=== PATIENT | female | born 2000 | race Caucasian/White ===

== ENCOUNTER 2019-12-14 18:50 | Emergency (ER) | payer MEDICAID, OTHER ==
[~2019-12-14] VITALS: Ht 165.1 cm; Wt 81.7 kg
[2019-12-14 18:55] VITALS: BP 134/77
--- NOTE | 2019-12-14 19:02 | NUR ---
patient ambulated to bed 6. handed on urine cup.
--- NOTE | 2019-12-14 19:15 | NUR ---
19 y/o female presented to the ED c/o lower back pain 10/15 that radiates to the front lower abdomen and started 3 days ago. Pt describes the pain as aching, and cramping. Pt states that she feels the needs to use the restroom to VOID however voids very little amounts. Pt is afebrile. Pt denies OTC meds. Pt denies surgeries. LMP: 11/25-12/02. Pt is laying in the bed, pt is no acute distress. Bed is in lowest position with one side rail up. PMH: none NKA
--- NOTE | 2019-12-14 20:52 | NUR ---
Dr. Goyal examining patient.
[2019-12-14] MEDS ORDERED: IBUPROFEN 400 MG TAB PO ONE (20:55)
[2019-12-14] MEDS ORDERED: NITROFURANTOIN 100 MG CAP ONE (21:01)
[2019-12-14 21:05] VITALS: BP 128/74
[2019-12-14] MEDS ORDERED: NITROFURANTOIN 100 MG CAP PO ONE (21:05)
--- NOTE | 2019-12-14 21:05 | NUR ---
Patient discharged with v/s stable. Written and verbal after care instructions given and explained. Patient alert, oriented and verbalized understanding of instructions. Ambulatory with steady gait. All questions addressed prior to discharge. ID band removed. Patient advised to follow up with PMD. Rx of NITROFURANTOIN given. Patient educated on indication of medication including possible reaction and side effects. Opportunity to ask questions provided and answered.
[2019-12-15] MEDS ORDERED: NITROFURANTOIN 100 MG CAP PO SCH (08:00)
== END 2019-12-14 21:05 | disposition home or self-care (01) ==
LOC: MED 18:50
DX: N39.0 Urinary tract infection, site not specified (principal)
CPT/HCPCS: 81002; 81025; 99283

== ENCOUNTER 2019-12-19 16:31 | Emergency (ER) | payer OTHER ==
[~2019-12-19] VITALS: Ht 165.1 cm; Wt 80.7 kg
[2019-12-19 16:40] VITALS: BP 139/74
--- NOTE | 2019-12-19 17:08 | NUR ---
19 YEAR OLD FEMALE COMPLAINS OF LOWER BACK PAIN THAT RADIATES TO LOWER ABDOMEN X YESTERDAY. PT STATES INCREASED URINATION. PT DENIES NAUSEA, VOMITTIGN, AND DIARRHEA. PT AOX4, BREATHING EVEN AND UNLABORED, SKIN WARM AND DRY. BED IN LOWEST POSITION, LOCKED, BED RAIL UPX1. PMH - DENIES ALLERGIES - NKA
--- NOTE | 2019-12-19 17:33 | NUR ---
PT HR 150, RR 31, ERMD MADE AWARE
[2019-12-19] MEDS ORDERED: NACL 0.9% 1,000 ML IV ONE ×2 (17:35→18:45)
[2019-12-19] MEDS ORDERED: KETOROLAC 15 MG/ML VIAL IVP ONE (17:40)
[2019-12-19] MEDS ORDERED: MORPHINE SULFATE 2 MG/ML SYR IVP ONE (17:40)
--- NOTE | 2019-12-19 17:55 | NUR ---
Dr Polo at bedside examining pt
--- NOTE | 2019-12-19 18:00 | NUR ---
Pt to CT via wheelchair
[2019-12-19 18:07] LABS: BASOPHILS % (AUTO) 0.2 % (0.0-2.0); EOSINOPHILS % (AUTO) 0.1 % (0.0-4.0); HEMATOCRIT 41.4 % (36-48); HEMOGLOBIN 14.2 g/dL (12.0-16.0); LYMPHOCYTES # (AUTO) 0.8 K/uL (2.5-16.5); LYMPHOCYTES % (AUTO) 9.7 % (20.5-51.1); MEAN CORPUSCULAR HEMOGLOBIN 30 pg (27-31); MEAN CORPUSCULAR HGB CONC 34 g/dL (33-37); MEAN CORPUSCULAR VOLUME 88.2 fL (80-94); MONOCYTES # (AUTO) 0.6 K/uL (0.8-1.0); MONOCYTES % (AUTO) 7.2 % (1.7-9.3); NEUTROPHILS # (AUTO) 6.9 K/uL (1.8-7.7); NEUTROPHILS % (AUTO) 82.8 % (42.2-75.2); PLATELET COUNT (AUTO) 229 K/uL (140-450); RED BLOOD CELL COUNT(AUTO) 4.69 MIL/uL (4.20-5.40); RED CELL DISTRIBUTION WIDTH 12.5 % (11.6-13.7); WHITE BLOOD COUNT (AUTO) 8.3 K/uL (4.8-10.8)
--- NOTE | 2019-12-19 18:12 | NUR ---
Pt returned from CT via wheelchair
[2019-12-19 18:28] LABS: ALBUMIN 4.1 g/dL (3.4-5.0); ANION GAP 15.8 (8-16); CARBON DIOXIDE 23.6 mmol/L (21-32); CREATININE 0.7 mg/dL (0.6-1.3); POTASSIUM 3.4 mmol/L (3.5-5.1); TOTAL BILIRUBIN 0.6 mg/dL (0.0-1.0)
[2019-12-19 18:43] LABS: APPEARANCE,URINE CLEAR (CLEAR); BILIRUBIN,URINE NEGATIVE (NEGATIVE); BLOOD, URINE TRACE-L (NEGATIVE); COLOR,URINE YELLOW (YELLOW); LEUKOCYTE ESTERASE ,URINE NEGATIVE (NEGATIVE); NITRITE, URINE NEGATIVE (NEGATIVE); PH,URINE 6.5 (5.0-9.0); UGLUCOSE NEGATIVE (NEGATIVE)
[2019-12-19] MEDS ORDERED: ACETAMINOPHEN EXTRA STRENGTH 500 MG TAB PO ONE (18:45)
[2019-12-19 18:46] LABS: RBC,URINE 0-5 /HPF (0-5); WBC,URINE 0-5 /HPF (0-5)
--- NOTE | 2019-12-19 18:48 | NUR ---
PT ALERT AND AWAKE, BREATHING EVEN AND UNLABORED. NO DISTRESS NOTED. WILL CONTINUE TO MONITOR.
--- NOTE | 2019-12-19 19:29 | NUR ---
PT SEEN LYING IN BED, NO C/O PAIN AT THIS TIME. CURRENT VITALS HR-106, ON RA, SP02 98%, BP: 113/63 RR-17, TEMP 98.1. NO DISTRESS NOTED, RAC 20G SALINE LOCKED. SIDERAILS UP. SAFETY MEASURES IN PLACE. VICE PRESIDENT INTEGRATED IN PLACE.
[2019-12-19 19:30] VITALS: BP 113/63
--- NOTE | 2019-12-19 19:49 | NUR ---
Patient discharged with v/s stable. Written and verbal after care instructions given and explained. Patient alert, oriented and verbalized understanding of instructions. Ambulatory with steady gait. All questions addressed prior to discharge. ID band removed. Patient advised to follow up with PMD. Rx of MOTRIN AND KEFLEX given. Patient educated on indication of medication including possible reaction and side effects. Opportunity to ask questions provided and answered.
--- NOTE | 2019-12-20 12:20 | NUR ---
CONFIRMED WITH RN END TIME OF 1945 FOR NS INFUSION ON 12/19/19
== END 2019-12-19 19:49 | disposition home or self-care (01) ==
LOC: MED 16:31
DX: N12 Tubulo-interstitial nephritis, not specified as acute or chronic (principal)
CPT/HCPCS: 36415; 74176; 80053; 81001; 81025; 83690; 85025; 87086; 96361; 96374; 96375; 99284; J1885; J2270; J7030

== ENCOUNTER 2021-06-28 22:50 | Emergency (ER) | payer OTHER ==
[~2021-06-28] VITALS: Ht 165.1 cm; Wt 88.0 kg
[2021-06-28 23:07] VITALS: BP 131/76
[2021-06-28] MEDS: ACETAMINOPHEN EXTRA STRENGTH 500 MG TAB PO ONE (23:19)
[2021-06-28] MEDS: ONDANSETRON 4 MG TAB PO ONE (23:20)
[2021-06-29 00:03] LABS: BASOPHILS % (AUTO) 0.4 % (0.0-2.0); EOSINOPHILS # (AUTO) 0.2 K/uL (0-0.4); EOSINOPHILS % (AUTO) 3.2 % (0.0-4.0); HEMATOCRIT 38.6 % (36-48); HEMOGLOBIN 13.1 g/dL (12.0-16.0); LYMPHOCYTES # (AUTO) 2.2 K/uL (2.5-16.5); MEAN CORPUSCULAR HEMOGLOBIN 30 pg (27-31); MEAN CORPUSCULAR HGB CONC 34 g/dL (33-37); MEAN CORPUSCULAR VOLUME 87.8 fL (80-94); MONOCYTES # (AUTO) 0.5 K/uL (0.8-1.0); MONOCYTES % (AUTO) 8.6 % (1.7-9.3); NEUTROPHILS # (AUTO) 3.3 K/uL (1.8-7.7); NEUTROPHILS % (AUTO) 52.8 % (42.2-75.2); PLATELET COUNT (AUTO) 227 K/uL (140-450); RED CELL DISTRIBUTION WIDTH 13.2 % (11.6-13.7); WHITE BLOOD COUNT (AUTO) 6.3 K/uL (4.8-10.8)
[2021-06-29 00:30] LABS: APPEARANCE,URINE CLEAR (CLEAR); BILIRUBIN,URINE NEGATIVE (NEGATIVE); BLOOD, URINE NEGATIVE (NEGATIVE); COLOR,URINE YELLOW (YELLOW); LEUKOCYTE ESTERASE ,URINE NEGATIVE (NEGATIVE); NITRITE, URINE NEGATIVE (NEGATIVE); UGLUCOSE NEGATIVE (NEGATIVE)
[2021-06-29 00:43] LABS: RBC,URINE 0-5 /HPF (0-5)
[2021-06-29] MEDS ORDERED: NITR100C7 PO (02:25)
[2021-06-29 02:35] VITALS: BP 131/76
== END 2021-06-29 02:29 | disposition home or self-care (01) ==
LOC: MED 22:50
DX: O23.41 Unspecified infection of urinary tract in pregnancy, first trimester (principal); M54.50 Low back pain, unspecified; Z3A.01 Less than 8 weeks gestation of pregnancy; Z79.899 Other long term (current) drug therapy
CPT/HCPCS: 36415; 76817; 81001; 81025; 84702; 85025; 86900; 86901; 87086; 99284; Q0092; Q0162

== ENCOUNTER 2021-08-18 13:26 | Emergency (ER) | payer MEDICAID, OTHER ==
[~2021-08-18] VITALS: Ht 167.6 cm; Wt 82.1 kg
[~2021-08-18 13:26] MED LIST: NITR100C7 PO
[2021-08-18 13:35] VITALS: BP 110/72
--- NOTE | 2021-08-18 13:40 | NUR ---
21 Y/O FEMALE BIB SELF C/O LOWER ABD PAIN AND PAIN DURING URINATION X TODAY. 12 WEEKS .. PT DENIES N/V/D. PT DENIES FEVER OR CHILLS. PT DENIES VAGINAL BLEEDING OR DISCHARGE. PMH: DENIES NKA
[2021-08-18] MEDS ORDERED: CEPH-588 PO (14:40)
[2021-08-18] MEDS ORDERED: ACET-10509 PO (14:40)
[2021-08-18 15:21] VITALS: BP 132/80
--- NOTE | 2021-08-18 15:21 | NUR ---
Patient discharged with v/s stable. Written and verbal after care instructions given and explained. Patient alert, oriented and verbalized understanding of instructions. Ambulatory with steady gait. All questions addressed prior to discharge. ID band removed. Patient advised to follow up with PMD. Rx of TYLENOL, KEFLEX given. Patient educated on indication of medication including possible reaction and side effects. Opportunity to ask questions provided and answered.
== END 2021-08-18 15:21 | disposition home or self-care (01) ==
LOC: MED 13:26
DX: O23.41 Unspecified infection of urinary tract in pregnancy, first trimester (principal); O99.511 Diseases of the respiratory system complicating pregnancy, first trimester; N39.0 Urinary tract infection, site not specified; J45.909 Unspecified asthma, uncomplicated; Z3A.12 12 weeks gestation of pregnancy
CPT/HCPCS: 81002; 81025; 87086; 99284